=== PATIENT | female | born 1955 | race African-American/Black ===

== ENCOUNTER 2017-02-12 00:13 | Emergency (ER) | payer OTHER ==
[2017-02-12 00:23] VITALS: BP 154/93; PULSE 95; TEMP 98.6; BMI 25.7
[2017-02-12] MEDS ORDERED: AZITHROMYCIN 250 MG TABLET PO ONE (00:30)
[2017-02-12] MEDS ORDERED: AZITHROMYCIN 250 MG TABLET ONE (00:31)
--- NOTE | 2017-02-12 00:38 | PDOC ---
History of Present Illness - General Chief Complaint: Hemoptysis Stated Complaint: COUGHING X 3 DAYS/BLOOD IN SPUTUM Time Seen by Provider: 02/12/17 00:19 History Source: Patient Exam Limitations: No Limitations - History of Present Illness Initial Comments: 02/12/17 00:33 This is a 62-year-old female who comes in complaining of cough congestion and says that she is coughing up thick yellow-green phlegm with some blood. Patient otherwise is healthy denies any significant medical history. Patient denies any history of smoking. Patient denies hypertension, high cholesterol diabetes. Patient denies any fevers or chills. Patient said she has had the cough times approximately 3 days. Patient denies any chest pain or shortness of breath. PAST MEDICAL HISTORY: no significant history PAST SURGICAL HISTORY: no significant history FAMILY HISTORY: no pertinant history SOCIAL HISTORY: Pt lives with family and is employed. MEDICATIONS: reviewed ALLERGIES: As per nursing notes Review of Systems General: No fevers or chills, no weakness, no weight loss HEENT: No change in vision. No sore throat,. No ear pain CardioVascular: No chest pain or shortness of breath Respiratory:+ cough, no wheezing. Gastrointestinal: no nausea, vomitting, diarrhea or constipation, No rectal bleeding Genitourinary: No dysuria, hematuria, or frequency Musculoskeletal: No joint or muscle pain or swelling Neurologic: No headache, vertigo, dizziness or loss of consciousness Psychiatric: nor depression Skin: No rashes or easy bruising Endocrine: no increased thirst or abnormal weight change Allergic: no skin or latex allergy All other systems reviewed and normal Exam: General: Well-nourished well-developed individual, no acute distress HEENT: Nose and throat: There is an area of excoriation with some very small of venous ooze of blood from the area with a small amount of blood trickling down the posterior oropharynx and the patient. Neck: Supple, no meningeal signs, no lymphadenopathy Eyes::Pupils equal reactive and round, extraocular motion intact Chest: Nontender to palpation Cardiac: S1-S2 normal, regular rate and rhythm, no murmurs rubs or gallops Respiratory: Lungs clear to auscultation bilateral Abdomen: Soft, nondistended, normal bowel sounds, nontender to palpation diffusely Extremities: Warm, dry, no cyanosis, clubbing, or edema Skin: No rashes Neuro: Alert and oriented x3, CN II - XII intact, nonfocal exam with normal strength, normal sensation, normal reflexes, normal gait, Psych: Normal mood and affect Procedure note cautery of nasal septum with silver nitrate Area of bleeding was cauterized with silver nitrate. Patient tolerated well Assessment and plan: This is a 62-year-old female who comes in with complaint of coughing up dark sputum with blood. Patient on evaluation was noted to have a very mild bleeding from her septum of the right nare. Patient's lungs were otherwise clear but given the fact she is coughing up the dark yellow-green sputum I'm going to start her on a Z-William and give her the first dose here in the emergency room. I sent a prescription to her pharmacy for the rest of the Z- William. Patient has a primary care doctor she can follow-up with. Past History - Past Medical History Allergies/Adverse Reactions: Allergies Allergy/AdvReac Type Severity Reaction Status Date / Time No Known Allergies Allergy Verified 02/12/17 00:14 Home Medications: Ambulatory Orders Cyanocobalamin Vit B-12 Inj. [Vitamin B12 Injection -] 02/12/17 Cancer: Yes (RT BREAST) COPD: No - Immunization History Immunization Up to Date: Yes - Suicide/Smoking/Psychosocial Hx Smoking History: Never smoked Have you smoked in the past 12 months: No Number of Cigarettes Smoked Daily: 0 Cigars Per Day: 0 Information on smoking cessation initiated: No Hx Alcohol Use: No Drug/Substance Use Hx: No Substance Use Type: None Hx Substance Use Treatment: No *Physical Exam - Vital Signs Last Vital Signs Temp Pulse Resp BP Pulse Ox 98.6 F 95 H 18 154/93 100 02/12/17 00:18 02/12/17 00:18 02/12/17 00:18 02/12/17 00:18 02/12/17 00:18 *DC/Admit/Observation/Transfer Diagnosis at time of Disposition: Nasal bleeding, Bronchitis - Discharge Dispostion Disposition: HOME Condition at time of disposition: Stable Admit: No - Referrals Referrals: Milan Sams MD [Primary Care Provider] - - Patient Instructions Additional Instructions: Get the prescription for azithromycin and take one tablet a day for the next 4 days. You were given the first tablet here. Use a humidifier in your room at night and in the house during the day, before you go to bed to use a Q-tip to put a small amount of Vaseline in your nose bilateral to help lubricate it to keep it from drying out and bleeding. Return to the emergency department immediately with ANY new, persistent or worsening symptoms. Continue any medications as previously prescribed by your physician. You should follow up with your primary doctor as soon as possible regarding today's emergency department visit. . Please make sure your doctor reviews the results of your emergency evaluation. Thank you for coming to the Emergency Department today for your care. It was a pleasure to see you today. Please note that your evaluation is INCOMPLETE until you follow-up with your doctor. - Post Discharge Activity
== END 2017-02-12 00:44 | disposition home or self-care (01) ==
LOC: FER 00:13
DX: R04.0 Epistaxis (principal); J40 Bronchitis, not specified as acute or chronic
CPT/HCPCS: 99281-25

== ENCOUNTER 2018-12-04 17:57 | Emergency (ER) | payer OTHER ==
[2018-12-04 18:06] VITALS: TEMP 98.3; BMI 26.4
--- NOTE | 2018-12-04 18:15 | PDOC ---
Attending Attestation - Resident Resident Name: Chiquita Araiza - ED Attending Attestation I have performed the following: I have examined & evaluated the patient, The case was reviewed & discussed with the resident, I agree w/resident's findings & plan, Exceptions are as noted - HPI HPI: 12/04/18 18:35 Cut her left hand while slicing exams. Laceration webspace between the second finger and thumb. Approximately 2 cm in length. No bleeding. Distal sensation is intact to light touch and two-point. Full flexion and extension against resistance IP joint, MCP joint. Apposition of the thumb and fifth finger is intact. No other injuries are noted. - Medical Decision Making 12/04/18 18:37 Assessment: Superficial laceration of the hand Plan: Repair under local anesthesia was performed by Dr. Araiza with my supervision. Anesthesia was good. Wound was closed with interrupted 5-0 nylon suture. Bacitracin and wound dressing were applied. Wound care was reviewed. Tetanus update was administered. Patient was advised to return to the ER if there was any sign of infection immediately, otherwise return for suture removal in 7 to 10 days. Fully ambulatory and in no pain or other distress upon discharge with family to follow-up as directed 12/04/18 18:51
--- NOTE | 2018-12-04 18:59 | PDOC ---
History of Present Illness - General Chief Complaint: Laceration Stated Complaint: LEFT HAND CUT Time Seen by Provider: 12/04/18 18:03 History Source: Patient Exam Limitations: No Limitations - History of Present Illness Initial Comments: 12/04/18 19:00 63y F with PMH of R breast Ca s/p mastectomy 2008 and chemotherapy presenting to ED with laceration to the L thumb after cutting yams with a knife. It was not serrated. She covered it up with gauze immediately. Denies pulsating bleeding, numbness, tingling, inability to move the thumb. PMD: [place] PMH: see hpi PSH: see hpi Meds: naproxen, vitamins Allergies: nkda Past History - Past Medical History Allergies/Adverse Reactions: Allergies Allergy/AdvReac Type Severity Reaction Status Date / Time No Known Allergies Allergy Verified 12/04/18 17:58 Cancer: Yes (RT BREAST) COPD: No - Immunization History Immunization Up to Date: Yes - Psycho Social/Smoking Cessation Hx Smoking History: Never smoked Have you smoked in the past 12 months: No Number of Cigarettes Smoked Daily: 0 Cigars Per Day: 0 Hx Alcohol Use: No Drug/Substance Use Hx: No Substance Use Type: None Hx Substance Use Treatment: No Review of Systems - Review of Systems Constitutional: No: Symptoms Reported HEENTM: No: Symptoms Reported Respiratory: No: Symptoms reported Cardiac (ROS): No: Symptoms Reported ABD/GI: No: Symptoms Reported : No: Symptoms Reported Musculoskeletal: No: Symptoms Reported Integumentary: Yes: See HPI Neurological: No: Symptoms reported *Physical Exam - Vital Signs Last Vital Signs Temp Pulse Resp BP Pulse Ox 98.3 F 73 17 172/87 H 100 12/04/18 17:58 12/04/18 17:58 12/04/18 17:58 12/04/18 17:58 12/04/18 17:58 - Physical Exam General Appearance: Yes: Nourished, Appropriately Dressed. No: Apparent Distress HEENT: positive: EOMI Comments:: 12/04/18 19:04 radial pulses 2+ Integumentary: positive: Normal Color, Dry, Warm, Other (3cm laceration to L thumb, oozing blood, no tendon involvement. linear shape) Neurologic: positive: Motor Strength 5/5. negative: Numbness, Sensory Deficit Procedures - Laceration/Wound Repair Left Finger 1st digit Wound Length: 2.6 to 5.0 cm Wound Explored: clean Wound's Depth, Shape: superficial, linear Irrigated w/ Saline: Yes Betadine Prep: No Anesthesia: 1% Lidocaine Amount of Anesthetic (ccs): 3 Wound Repaired With: Sutures Suture Size/Type: 5:0 Number of Sutures: 7 Medical Decision Making - Medical Decision Making 12/04/18 19:06 63y F presenting with laceration to L thumb. linear shape, no fb, no tendon involvement. patient able to range thumb without difficulty, sensation intact. will give Boostrix. laceration repaired; see procedure note. patient given return precautions. Dispo: home Discharge - Discharge Information Problems reviewed: Yes Clinical Impression/Diagnosis: Laceration Condition: Improved Disposition: HOME - Admission No - Follow up/Referral Referrals: Milan Sams MD [Primary Care Provider] - - Patient Discharge Instructions Patient Printed Discharge Instructions: DI for Laceration Repair Additional Instructions: You were seen in the emergency room today for a cut to the thumb. It was repaired with 7 sutures. Come back in the emergency room, urgent care or your doctor's office to get the suture removed in 7 days. The thumb will be sore and swollen for the next two days. You can take ibuprofen or Tylenol for the pain as needed. Keep the area clean and dry. Use only mild soap and water to clean. Come back sooner if the thumb continues to be swollen, you are unable to move it , you notice it turning red, the wound appears infected or if any new or concerning symptom develops. Thank you - Post Discharge Activity
[2018-12-04 19:02] VITALS: BP 136/86; PULSE 75
[2018-12-04] MEDS ORDERED: DIPHTH,PERTUSS(ACELL),TET 0.5 ML DISP.SYRIN IM ONE ×2 (19:02→19:03)
== END 2018-12-04 19:08 | disposition home or self-care (01) ==
LOC: FER 17:57
PROC: 3E0234Z Introduction of Serum, Toxoid and Vaccine into Muscle, Percutaneous Approach (ICD-10-PCS; principal; 2018-12-04)
DX: S61.012A Laceration without foreign body of left thumb without damage to nail, initial encounter (principal); W26.0XXA Contact with knife, initial encounter; Y93.G1 Activity, food preparation and clean up; Y92.89 Other specified places as the place of occurrence of the external cause; Z85.3 Personal history of malignant neoplasm of breast
CPT/HCPCS: 90471; 90715; 99282-25

== ENCOUNTER 2018-12-11 16:30 | Emergency (ER) | payer OTHER ==
[2018-12-11 16:41] VITALS: BP 146/81; PULSE 83; TEMP 98.4; BMI 26.4
--- NOTE | 2018-12-11 16:45 | PDOC ---
Suture Removal/Wound Check HPI - History of Present Illness Chief Complaint: Suture/Staple Removal(Here) Stated Complaint: SUTURE REMOVAL Time Seen by Provider: 12/11/18 16:35 History Source: Yes: Patient Exam Limitations: Yes: No Limitations - Onset of Previous Treatment Comment:: 12/11/18 16:41 63y F with PMH of R breast Ca s/p mastectomy 2007 and chemotherapy presenting to ED with with suture removal. s/p left thumb injury on 12/04/18 with placement of x7 sutures. No fever or chills, redness, pain, swelling or discharge/malodor. Keeping the wound clean. tetanus updated at that time. Review of Systems Constitutional: no fevers or chills. MUSCULOSKELETAL: No joint pain and swelling. No muscle pain/arthralgias. Back: no back pain SKIN: no redness or skin changes, no discharge, no rash. +sutured wound. Hematologic: no easy bruising/bleeding. NEUROLOGIC: No weakness, numbness or tingling. Allergic/Immunologic: no allergies All other systems reviewed and negative, or as documented in HPI. physical exam General: NAD, well appearing Vascular: 2+ radialis pulses symmetric and equal. 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 sensation grossly intact in median/radial/ ulnar distribution. MSK: soft compartments, Cap refill <2 sec. 2+ radialis pulses bilaterally and symmetric. FDP/FDS intact. no joint tenderness. FROM. Skin: color normal color, warm and well perfused. left thumb with sutured wound , x7 sutures, skin well approximated, no bleeding, no tenderness 12/11/18 16:43 12/11/18 16:45 Past History - Past Medical History Allergies/Adverse Reactions: Allergies Allergy/AdvReac Type Severity Reaction Status Date / Time No Known Allergies Allergy Verified 12/11/18 16:31 Home Medications: Ambulatory Orders NK [No Known Home Medication] 12/11/18 Cancer: Yes (RT BREAST) COPD: No - Immunization History Immunization Up to Date: Yes - Psycho Social/Smoking Cessation Hx Smoking History: Never smoked Have you smoked in the past 12 months: No Number of Cigarettes Smoked Daily: 0 Cigars Per Day: 0 Hx Alcohol Use: No Drug/Substance Use Hx: No Substance Use Type: None Hx Substance Use Treatment: No *Physical Exam - Vital Signs Last Vital Signs Temp Pulse Resp BP Pulse Ox 98.4 F 83 19 146/81 98 12/11/18 16:30 12/11/18 16:30 12/11/18 16:30 12/11/18 16:30 12/11/18 16:30 Medical Decision Making - Medical Decision Making 12/11/18 16:44 Verbal consent was obtained. Wound well approximated, no erythema, induration, or discharge noted. x7 sutures completely removed in a sterile fashion. Patient tolerated procedure well, no complications. Patient advised to look for and return for any signs of infection such as redness, swelling, discharge, or worsening pain. 12/11/18 16:46 Discharge - Discharge Information Problems reviewed: Yes Clinical Impression/Diagnosis: Encounter for removal of sutures Condition: Stable Disposition: HOME - Admission No - Follow up/Referral - Patient Discharge Instructions Patient Printed Discharge Instructions: DI for Suture Removal Additional Instructions: AFTER the stitches are removed: Clean your wound as directed. Carefully wash your wound with soap and water. Pat the area dry with a clean towel. Protect your wound. Your wound can swell, bleed, or split open if it is stretched or bumped. You may need to wear a bandage that supports your wound until it is completely healed. Minimize your scar. Use sunblock if your wound is exposed to the sun. Apply it every day after the stitches are removed. This will help prevent skin discoloration. - Post Discharge Activity
[2018-12-11] MEDS ORDERED: CEPHALEXIN MONOHYDRATE 500 MG CAPSULE (UD) PO ONE (16:54)
[2018-12-11] MEDS ORDERED: CEPHALEXIN MONOHYDRATE 500 MG CAPSULE (UD) ONE (16:55)
[2018-12-11] MEDS ORDERED: IBUPROFEN 600 MG TABLET (FP) PO ONE ×2 (16:58→16:59)
== END 2018-12-11 17:14 | disposition home or self-care (01) ==
LOC: FER 16:30
DX: Z48.02 Encounter for removal of sutures (principal)
CPT/HCPCS: 99281-25

== ENCOUNTER 2019-10-16 19:00 | Emergency (ER) | payer OTHER ==
[2019-10-16 19:12] VITALS: BP 141/88; PULSE 78; TEMP 98; BMI 26.4
[2019-10-16 20:00] LABS: BASO % 1.7 % (0-2.0); EOS % 0.9 % (0-4.5); HEMATOCRIT 36.3 % (32.4-45.2); HEMOGLOBIN 11.7 GM/dl (10.7-15.3); MCHC 32.3 g/dl (32.0-36.0); MEAN CELL VOLUME 86.6 fl (80-96); MEAN PLT VOLUME 8.7 fl (7.5-11.1); MONO % 5.4 % (3.8-10.2); PLATELET COUNT 337 K/MM3 (134-434); RBC 4.19 M/mm3 (3.60-5.2); RDW 12.2 % (11.6-15.6); WHITE BLOOD COUNT 7.2 K/mm3 (4.0-10.8)
[2019-10-16 20:14] LABS: ALBUMIN 4.3 g/dl (3.4-5.0); BILIRUBIN,TOTAL 0.7 mg/dl (0.2-1); CALCIUM 9.2 mg/dl (8.5-10); CREATININE 0.9 mg/dl (0.55-1.3); POTASSIUM 3.9 mmol/L (3.5-5.1); TOT PROT 7.7 g/dl (6.4-8.2)
--- NOTE | 2019-10-16 21:51 | PDOC ---
Documentation entered by Pao Fisher SCRIBE, acting as scribe for Annie Sin MD. Annie Sin MD: This documentation has been prepared by the scribePhillip Ana, SCRIBE, under my direction and personally reviewed by me in its entirety. I confirm that the documentation accurately reflects all work, treatment, procedures, and medical decision making performed by me. History of Present Illness - General Chief Complaint: Lightheaded Stated Complaint: DIZZY X 1 MONTH History Source: Patient Exam Limitations: No Limitations - History of Present Illness Initial Comments: 10/16/19 19:05 Patient is a 64 year old female with a significant past medical history of breast cancer (2007) s/p left mastectomy and UTIs, who presents to the ED with dizziness x3 weeks. Patient stated that she has been having dizziness on/off for the past 3 weeks but that today it had been constant since this morning. Patient disclosed that she went to an Urgent Care 3 weeks ago and they prescribed her medication for vertigo but she said her symptoms have been getting worse. Patient denies: any other related symptoms. Allergies: NKDA Past History - Medical History Allergies/Adverse Reactions: Allergies Allergy/AdvReac Type Severity Reaction Status Date / Time No Known Allergies Allergy Verified 10/16/19 19:01 Home Medications: Ambulatory Orders Meclizine HCl 12.5 mg PO ASDIR PRN 10/16/19 Nitrofurantoin Monohyd/M-Cryst [Macrobid -] 100 mg PO BID #10 capsule 10/16/19 Cancer: Yes (RT BREAST) COPD: No - Immunization History Immunization Up to Date: Yes - Psycho-Social/Smoking History Smoking History: Never smoked Have you smoked in the past 12 months: No Number of Cigarettes Smoked Daily: 0 Cigars Per Day: 0 Review of Systems - Review of Systems Able to Perform ROS?: Yes Comments:: 10/16/19 19:06 GEN: no fever, chills, night sweats, generalized weakness, malaise, or uninten tional weight change HEENT: no ear pain, congestion, sore throat, vision change, or eye pain CV: no chest pain, palpitations, lightheadedness, syncope, or edema RESP: no cough, wheezing, or SOB GI: no abdominal pain, nausea, vomiting, diarrhea, constipation, or white/black/bloody stool : no dysuria, hematuria, frequency, incontinence, retention, or discharge MSK: no muscle weakness or pain, no joint swelling or pain NEURO: +headache, dizziness, lightheadedness. No seizure, numbness, tingling, focal weakness, or difficulty walking/talking PSYCH: no insomnia, behavior change, SI, HI, or substance use SKIN: no prurtitis, excessive dryness, jaundice, rash, cuts, or unexplained bruises ROS otherwise negative except as noted in HPI *Physical Exam - Physical Exam 10/16/19 19:06 GENERAL: nontoxic-appearing, A/Ox4, no distress, answers questions appropriately HEENT: PERRLA, EOMI, moist mucous membranes NECK/BACK: no midline ttp, no spinal stepoff or deformity, no hematoma, full ROM, neck supple CARDIOVASCULAR: regular rate/rhythm, no MGR, strong peripheral pulses, capillary refill <2 seconds, extremities wwp, no edema LUNGS/RESPIRATORY: no respiratory distress, CTAB GI/ABDOMEN: symmetric [id number], normoactive BS, soft, no ttp, no midline pulsatile masses : no CVA tenderness MSK/EXTREMITIES: no muscle atrophy, no acute deformity SKIN: warm and dry, no pallor, no jaundice, no rash, no pathologic-appearing bruising, no skin breakdown, no cuts, no lesions NEUROLOGICAL: +Increased dizziness when looking to the right side. GCS 15, CN II-XII grossly intact, 5/5 strength proximally and distally, no facial droop Procedures - Lumbar Puncture Indication: Pseudotumor Cerebri, Headache CT Scan: Yes Betadine Prep: Yes Position: Left lateral decubitus Site: L5-S1 Local Anesthesia: 1% Lidocaine with epi Volume(ml): 5 Lumbar Puncture Kit: Pediatric Needle Size(gauge): 22 Opening Pressure(mmHg): 19 Closing Pressure(mmHg): 11 Traumatic Tap: No Tubes Obtained: 4 Clear Fluid: Yes Complications: No Progress: 10/16/19 21:51 Pt tolerated prodcedure well. She will stay recumbent for 1 hr and then she will be discharged home. ED Treatment Course - LABORATORY CBC & Chemistry Diagram: 10/16/19 19:50 10/16/19 19:31 Medical Decision Making - Medical Decision Making 10/16/19 20:19 All labs are normal. 09/03/20 20:[address] scan shows slit like ventricles; perhaps consistent with Pseudotumor cerebri; we had the discussion of LP to diagnose brain pressures. Pt is talking to family to see if she wants to get this done today. Pt is aware that psudotumor can result in blindness over time. She has had slit like ventricles in the past. She wants to follow with her PMD and neurology oupatient. 10/17/19 04:22 CSF evaluation is normal CSF lyme tests and culture are pending Pt feels better home with family Discharge - Discharge Information Problems reviewed: Yes Clinical Impression/Diagnosis: Pseudotumor cerebri syndrome Condition: Improved Disposition: HOME - Admission No - Additional Discharge Information Prescriptions: Nitrofurantoin Monohyd/M-Cryst [Macrobid -] 100 mg PO BID #10 capsule - Follow up/Referral Referrals: Milan Sams MD [Primary Care Provider] - Vikash Lipscomb MD [Staff Physician] - Amanuel Munguia MD [Staff Physician] - - Patient Discharge Instructions Patient Printed Discharge Instructions: DI for Headache Additional Instructions: pseudotumor cerebri or benign intracranial hypertension - Post Discharge Activity
[2019-10-16 23:11] LABS: CSF APPEARANCE CLEAR; CSF COLOR COLORLESS; CSF WBC 2
[2019-10-16 23:19] LABS: BF GLUCOSE (CSF ONLY) 60 mg/dL (40-70)
--- NOTE | 2019-10-17 10:55 | EKG ---
Test Reason : Blood Pressure : / mmHG Vent. Rate : 073 BPM Atrial Rate : 073 BPM P-R Int : 168 ms QRS Dur : 074 ms QT Int : 424 ms P-R-T Axes : 064 -08 -01 degrees QTc Int : 467 ms NORMAL SINUS RHYTHM SEPTAL INFARCT (CITED ON OR BEFORE 02-JUN-2014) NONSPECIFIC ST ABNORMALITY ABNORMAL ECG Confirmed by ROSE MESA MD ([id number]) on 10/17/2019 10:55:18 AM Referred By: DR FUENTES Confirmed By:ROSE MESA MD
== END 2019-10-16 23:32 | disposition home or self-care (01) ==
LOC: FER 19:00 → SUPCPDRO 19:00 → FER 23:32
PROC: 009U3ZX Drainage of Spinal Canal, Percutaneous Approach, Diagnostic (ICD-10-PCS; principal; 2019-10-16)
DX: G93.2 Benign intracranial hypertension (principal)
CPT/HCPCS: 36415; 70450-TC; 80053; 81003; 81015; 82550; 82945; 84157; 84484; 85025; 86617; 87070; 87205; 93005; 99285-25

== ENCOUNTER 2020-03-01 09:59 | Emergency (ER) | payer OTHER ==
[2020-03-01 10:01] VITALS: BP 152/90; PULSE 88; TEMP 98.5; BMI 26.4
[2020-03-01] MEDS ORDERED: MECLIZINE HCL 25 MG TABLET (FP) PO ONE (10:13)
[2020-03-01] MEDS ORDERED: ONDANSETRON 4 MG TABLET PO PRN (10:13)
[2020-03-01] MEDS ORDERED: MECLIZINE HCL 25 MG TABLET (FP) ONE (10:18)
[2020-03-01] MEDS ORDERED: ONDANSETRON *ODT* 4 MG TABLET ONE (10:18)
[2020-03-01] MEDS ORDERED: ONDANSETRON *ODT* 4 MG TABLET SL ONE (10:19)
[2020-03-01] MEDS ORDERED: SODIUM CHLORIDE 0.9% 500 ML INFUS.BAG IV ONE (12:40)
[2020-03-01 14:33] LABS: EPITHELIAL CELLS FEW /hpf
== END 2020-03-01 14:58 | disposition home or self-care (01) ==
LOC: FER 09:59
DX: R42 Dizziness and giddiness (principal)
CPT/HCPCS: 81003; 81015; 82962; 87086; 93005; 99285-25; Q0162

== ENCOUNTER 2020-05-18 17:30 | Observation (INO) | payer OTHER ==
[2020-05-18] MEDS ORDERED: ASPIRIN 81 MG CHEWABLE TABLETS PO ONE (17:33)
[2020-05-18] MEDS ORDERED: ACETAMINOPHEN 1000 MG/100 ML VIAL (NON FORMULARY) IVPB ONE (17:33)
[2020-05-18 17:53] VITALS: BMI 28.1
[2020-05-18] MEDS ORDERED: FAMOTIDINE 20 MG/50 ML IVPB 20 MG/50 ML MG IVPB ONE ×2 (17:59→18:14)
[2020-05-18] MEDS ORDERED: ASPIRIN 81 MG CHEWABLE TABLETS ONE (18:01)
[2020-05-18] MEDS ORDERED: ACETAMINOPHEN INJECTION 100 ML IVPB ONE (18:01)
[2020-05-18 18:22] LABS: HEMATOCRIT 36.5 % (32.4-45.2); HEMOGLOBIN 11.6 GM/dl (10.7-15.3); MCH 27.3 pg (25.7-33.7); MCHC 31.8 g/dl (32.0-36.0); MEAN CELL VOLUME 85.8 fl (80-96); MEAN PLT VOLUME 8.4 fl (7.5-11.1); PLATELET COUNT 312 K/MM3 (134-434); RBC 4.26 M/mm3 (3.60-5.2); RDW 12.5 % (11.6-15.6); WHITE BLOOD COUNT 5.7 K/mm3 (4.0-10.8)
[2020-05-18 18:35] LABS: ACTIVATED PTT 26.7 SECONDS (25.2-36.5)
[2020-05-18 18:37] LABS: ALBUMIN 4.1 g/dl (3.4-5.0); ALK PHOS 81 U/L (45-117); ANION GAP 6 MMOL/L (8-16); BILIRUBIN,TOTAL 0.6 mg/dl (0.2-1); CALCIUM 9.1 mg/dl (8.5-10); CHLORIDE 102 mmol/L (98-107); CO2 27 mmol/L (21-32); GLUCOSE,RANDOM 106 mg/dl (74-106); MAGNESIUM 2.1 mg/dL (1.8-2.4); POTASSIUM 4.2 mmol/L (3.5-5.1); SGOT/AST 20 U/L (15-37); SGPT/ALT 19 U/L (13-61); SODIUM 135 mmol/L (136-145); TOT PROT 7.3 g/dl (6.4-8.2)
[2020-05-18 18:39] LABS: INR 1.14 (0.82-1.09); PROTHROMBIN TIME (PATIENT) 12.7 SEC (10.2-13.0)
[2020-05-18 20:05] LABS: N-TERMINAL BNP 72.3 pg/ml (5-125)
[2020-05-18 20:24] LABS: PLATELET ESTIMATE ADEQUATE
[2020-05-19 08:29] LABS: CALCIUM 9.1 mg/dl (8.5-10); CREATININE 0.7 mg/dl (0.55-1.3); POTASSIUM 3.9 mmol/L (3.5-5.1)
[2020-05-19 08:39] LABS: HEMATOCRIT 34.9 % (32.4-45.2); HEMOGLOBIN 11.2 GM/dl (10.7-15.3); MCH 27.4 pg (25.7-33.7); MCHC 32.2 g/dl (32.0-36.0); MEAN CELL VOLUME 85.2 fl (80-96); MEAN PLT VOLUME 8.9 fl (7.5-11.1); PLATELET COUNT 278 K/MM3 (134-434); RDW 12.1 % (11.6-15.6); WHITE BLOOD COUNT 5.1 K/mm3 (4.0-10.8)
[2020-05-19] MEDS ORDERED: PT OWN MED DRAWER 7, Y5N ONE (09:51)
[2020-05-19] MEDS: MULTIVITAMINS THER W-MINERALS COMBO TABLET (FP) PO SCH (09:53)
[2020-05-19] MEDS: ENOXAPARIN NA (PORCINE) 40 MG/0.4 ML DISP.SYRIN SQ SCH (09:53)
[2020-05-19] MEDS: ASPIRIN 81 MG CHEWABLE TABLETS PO SCH (09:53)
[2020-05-19] MEDS: VITAMIN E 400 INTERNATIONAL-UNITS CAPSULE (FP) PO SCH (09:53)
[2020-05-19] MEDS ORDERED: PATIENT'S OWN MEDICATION (NON-FORMULARY) (Mv-Mn/Iron/Folic Acid/Herb 190 [Vitamin D3 Compl PO SCH (10:00)
[2020-05-19 13:09] LABS: CHOLESTEROL 146 mg/dl (50-200); HDL CHOLESTEROL 43 mg/dl (40-60); LDL CHOLESTEROL (ONLY DFH) 88 mg/dl (5-100); TRIGLYCERIDES 76 mg/dl (0-150)
[2020-05-19] MEDS ORDERED: ACETAMINOPHEN 325 MG TABLET (FP) PO ONE ×2 (23:49→23:51)
[2020-05-20] MEDS ORDERED: PT OWN MED DRAWER 7, Y5N ONE (10:13)
[2020-05-20] MEDS: MULTIVITAMINS THER W-MINERALS COMBO TABLET (FP) PO SCH (10:14)
[2020-05-20] MEDS: ENOXAPARIN NA (PORCINE) 40 MG/0.4 ML DISP.SYRIN SQ SCH (10:14)
[2020-05-20] MEDS: ASPIRIN 81 MG CHEWABLE TABLETS PO SCH (10:14)
[2020-05-20] MEDS: VITAMIN E 400 INTERNATIONAL-UNITS CAPSULE (FP) PO SCH (10:15)
[2020-05-20 10:34] VITALS: BP 132/71; PULSE 77; TEMP 98.5
[2020-05-20] MEDS ORDERED: SODIUM CHLORIDE NASAL SPRAY 44 ML BOTTLE NS PRN (10:52)
== END 2020-05-20 18:28 | disposition home or self-care (01) ==
LOC: FER 17:30 → FM/S 23:22
PROVIDERS: ADMIT Hospitalist; ATTEND Nurse Practitioner Acute Care
PROC: 3E023GC Introduction of Other Therapeutic Substance into Muscle, Percutaneous Approach (ICD-10-PCS; principal; 2020-05-18)
PROC: 3E033NZ Introduction of Analgesics, Hypnotics, Sedatives into Peripheral Vein, Percutaneous Approach (ICD-10-PCS; 2020-05-18)
PROC: 3E033GC Introduction of Other Therapeutic Substance into Peripheral Vein, Percutaneous Approach (ICD-10-PCS; 2020-05-18)
DX: R07.89 Other chest pain (principal); R42 Dizziness and giddiness; N39.0 Urinary tract infection, site not specified; J40 Bronchitis, not specified as acute or chronic; G89.29 Other chronic pain; Z48.02 Encounter for removal of sutures; R04.0 Epistaxis; G93.2 Benign intracranial hypertension; K62.5 Hemorrhage of anus and rectum; M54.2 Cervicalgia; Z85.3 Personal history of malignant neoplasm of breast; Z90.11 Acquired absence of right breast and nipple; Z92.21 Personal history of antineoplastic chemotherapy
CPT/HCPCS: 36415; 71045-TC-FY; 78452-TC; 80048; 80053; 80061; 82465; 82550; 83735; 83880; 84484; 85025; 85027; 85610; 85730; 93005; 93017; 93306-TC; 93880-TC; 96365; 96372; 96375; 99285-25; A9502; C9803; G0378; J0131; U0003; U0005

== ENCOUNTER 2021-06-05 20:47 | Emergency (ER) | payer OTHER ==
[2021-06-05 20:54] VITALS: BP 145/73; PULSE 90; TEMP 98.8; BMI 24.9
[2021-06-05] MEDS ORDERED: SILVER NITRATE 75% APPLIC STCK 1 PKT EACH ONE (22:43)
[2021-06-05] MEDS ORDERED: AMOXICILLIN 500 MG CAPSULE (FP) PO ONE (22:46)
[2021-06-05] MEDS ORDERED: AMOXICILLIN 250 MG CAPSULE ONE (22:48)
== END 2021-06-05 22:54 | disposition home or self-care (01) ==
LOC: FER 20:47
DX: J01.90 Acute sinusitis, unspecified (principal); R04.0 Epistaxis
CPT/HCPCS: 99283-25

== ENCOUNTER 2022-02-25 10:40 | Emergency (ER) | payer OTHER ==
[2022-02-25] MEDS ORDERED: SODIUM CHLORIDE 0.9% 500 ML INFUS.BAG IV ONE (10:50)
[2022-02-25] MEDS ORDERED: ONDANSETRON 4 MG/2 ML VIAL IVPB ONE (10:50)
[2022-02-25] MEDS ORDERED: ACETAMINOPHEN 325 MG TABLET (FP) PO ONE (10:51)
[2022-02-25 10:52] VITALS: RESP 18; BMI 58.2
[2022-02-25] MEDS ORDERED: ONDANSETRON 4 MG/2 ML VIAL ONE (10:53)
[2022-02-25] MEDS ORDERED: ACETAMINOPHEN 325 MG TABLET (FP) ONE (10:53)
[2022-02-25 11:25] LABS: HEMATOCRIT 35.4 % (32.4-45.2); HEMOGLOBIN 11.7 G/dL (10.7-15.3); MCH 28.2 pg (25.7-33.7); MCHC 32.9 g/dl (32.0-36.0); MEAN CELL VOLUME 85.6 fl (80-96); MEAN PLT VOLUME 7.8 fl (7.5-11.1); RBC 4.13 10^6/uL (3.60-5.2); RDW 14.2 % (11.6-15.6); WHITE BLOOD COUNT 11.7 10^3/uL (4.0-10.8)
[2022-02-25 11:34] LABS: ALBUMIN 3.9 g/dl (3.4-5.0); BILIRUBIN,TOTAL 0.9 mg/dl (0.2-1); CREATININE 0.7 mg/dl (0.55-1.3); TOT PROT 7.1 g/dl (6.4-8.2)
[2022-02-25 11:35] LABS: PLATELET ESTIMATE ADEQUATE
[2022-02-25] MEDS ORDERED: MECLIZINE HCL 25 MG TABLET (FP) PO ONE (12:21)
[2022-02-25] MEDS ORDERED: MECLIZINE HCL 25 MG TABLET (FP) ONE (12:22)
[2022-02-25 14:45] LABS: EPITHELIAL CELLS FEW /hpf
[2022-02-25 15:38] VITALS: BP 140/76; PULSE 76; TEMP 98.2
== END 2022-02-25 16:15 | disposition home or self-care (01) ==
LOC: FER 10:40
PROC: 3E033GC Introduction of Other Therapeutic Substance into Peripheral Vein, Percutaneous Approach (ICD-10-PCS; principal; 2022-02-25)
DX: R42 Dizziness and giddiness (principal)
CPT/HCPCS: 0241U-QW; 36415; 70450-TC; 71045-TC-FY; 80053; 81003; 81015; 85027; 93005; 99285-25

== ENCOUNTER 2023-06-12 09:01 | Emergency (ER) | payer MEDICARE, OTHER ==
[2023-06-12 09:12] VITALS: BMI 24.7
[2023-06-12] MEDS ORDERED: ACETAMINOPHEN INJECTION 100 ML IVPB ONE (09:35)
[2023-06-12] MEDS: ACETAMINOPHEN 1000 MG/100 ML BAG IVPB ONE (09:58)
[2023-06-12 10:21] LABS: HEMATOCRIT 37.7 % (32.4-45.2); MCH 27.9 pg (25.7-33.7); MCHC 31.8 g/dl (32.0-36.0); MEAN CELL VOLUME 87.8 fl (80-96); MEAN PLT VOLUME 8.8 fl (7.5-11.1); PLATELET COUNT 258.7 10^3/uL (134-434); RBC 4.29 10^6/uL (3.60-5.2); RDW 13.5 % (11.6-15.6)
[2023-06-12 10:27] LABS: PLATELET ESTIMATE ADEQUATE
[2023-06-12 10:37] LABS: ALBUMIN 4.3 g/dl (3.4-5.0); CALCIUM 9.4 mg/dl (8.5-10.1); CREATININE 0.9 mg/dl (0.6-1.3); POTASSIUM 3.8 mmol/L (3.5-5.1)
[2023-06-12] MEDS ORDERED: KETOROLAC TROMETHAMINE 15 MG/ML VIAL ONE (11:21)
[2023-06-12] MEDS: KETOROLAC TROMETHAMINE 30 MG/1 ML VIAL IVPUSH ONE (11:23)
[2023-06-12 12:26] VITALS: BP 130/62; PULSE 73; RESP 18; TEMP 98.8
== END 2023-06-12 12:41 | disposition home or self-care (01) ==
LOC: FER 09:01
PROC: 3E033NZ Introduction of Analgesics, Hypnotics, Sedatives into Peripheral Vein, Percutaneous Approach (ICD-10-PCS; principal; 2023-06-12)
PROC: 3E0333Z Introduction of Anti-inflammatory into Peripheral Vein, Percutaneous Approach (ICD-10-PCS; 2023-06-12)
DX: R07.81 Pleurodynia (principal); R05.9 Cough, unspecified; M54.9 Dorsalgia, unspecified; J06.9 Acute upper respiratory infection, unspecified; Z20.822 Contact with and (suspected) exposure to COVID-19
CPT/HCPCS: 0241U-QW; 36415; 71046-TC-FY; 80053; 84484; 85027; 85379; 93005; 99285-25; J0131

== ENCOUNTER 2023-06-19 19:01 | Emergency (ER) | payer MEDICARE, OTHER ==
[2023-06-19 19:16] VITALS: BP 149/86; PULSE 61; RESP 18; TEMP 98.7; BMI 26.5
[2023-06-19] MEDS ORDERED: ACETAMINOPHEN INJECTION 100 ML IVPB ONE (19:55)
[2023-06-19] MEDS ORDERED: ONDANSETRON 4 MG/2 ML VIAL ONE (19:55)
[2023-06-19] MEDS ORDERED: MECLIZINE HCL 25 MG TABLET (FP) ONE (19:56)
[2023-06-19] MEDS: ONDANSETRON 4 MG/2 ML VIAL IVPB ONE (20:25)
[2023-06-19] MEDS: SODIUM CHLORIDE 0.9% 500 ML INFUS.BAG IV ONE (20:25)
[2023-06-19] MEDS: MECLIZINE HCL 25 MG TABLET (FP) PO ONE (20:25)
[2023-06-19] MEDS: ACETAMINOPHEN 1000 MG/100 ML BAG IVPB ONE (20:30)
[2023-06-19 20:33] LABS: HEMATOCRIT 37.8 % (32.4-45.2); HEMOGLOBIN 12.2 G/dL (10.7-15.3); MCH 28.3 pg (25.7-33.7); MCHC 32.2 g/dl (32.0-36.0); MEAN CELL VOLUME 87.7 fl (80-96); MEAN PLT VOLUME 8.5 fl (7.5-11.1); PLATELET COUNT 292.6 10^3/uL (134-434); RBC 4.31 10^6/uL (3.60-5.2); RDW 13.9 % (11.6-15.6); WHITE BLOOD COUNT 6.1 10^3/uL (4.0-10.8)
[2023-06-19 20:47] LABS: ALBUMIN 4.4 g/dl (3.4-5.0); BILIRUBIN,TOTAL 0.8 mg/dl (0.2-1); CALCIUM 9.9 mg/dl (8.5-10.1); CREATININE 1.2 mg/dl (0.6-1.3); TOT PROT 7.2 g/dl (6.4-8.2)
== END 2023-06-19 22:41 | disposition home or self-care (01) ==
LOC: FER 19:01
PROC: 3E033NZ Introduction of Analgesics, Hypnotics, Sedatives into Peripheral Vein, Percutaneous Approach (ICD-10-PCS; principal; 2023-06-19)
PROC: 3E033GC Introduction of Other Therapeutic Substance into Peripheral Vein, Percutaneous Approach (ICD-10-PCS; 2023-06-19)
DX: R51.9 Headache, unspecified (principal); R42 Dizziness and giddiness; H93.19 Tinnitus, unspecified ear; R11.0 Nausea
CPT/HCPCS: 36415; 70450-TC; 70480-TC; 80053; 82550; 84484; 85027; 99284-25; J0131

== ENCOUNTER 2024-09-07 14:04 | Emergency (ER) | payer MEDICARE, OTHER ==
[2024-09-07 14:12] VITALS: BP 148/70; PULSE 70; RESP 17; TEMP 98.4; BMI 28.3
== END 2024-09-07 15:59 | disposition home or self-care (01) ==
LOC: FER 14:04
DX: N39.0 Urinary tract infection, site not specified (principal); R39.15 Urgency of urination; R10.9 Unspecified abdominal pain; M54.50 Low back pain, unspecified; R35.0 Frequency of micturition
CPT/HCPCS: 81003; 81015; 99283-25